=== PATIENT | female | born 2000 | race Caucasian/White ===

== ENCOUNTER 2022-07-23 08:47 | Day surgery (SDC) | payer OTHER ==
[~2022-07-23] VITALS: Ht 157.5 cm; Wt 56.2 kg
[~2022-07-23 08:47] MED LIST: FLUO20CA22 PO; HEPARIN SOD (PORCINE) 5000UNITS/ML 1ML VIAL/SYRINGE SQ ONE; TEST200I14 PO; ceFAZolin SOD 2 GM in IV 1 EA IV ONE
[2022-07-23 09:16] VITALS: BP 131/73
[2022-07-23] MEDS ORDERED: fentaNYL 100 MCG/2 ML INJECTION As Ordered ONE (09:29)
[2022-07-23] MEDS ORDERED: ONDANSETRON 4MG 2ML VIAL As Ordered ONE (09:30)
[2022-07-23] MEDS ORDERED: MIDAZOLAM INJ 2MG/2ML VIAL (J2250 PER 1MG) As Ordered ONE (09:30)
[2022-07-23] MEDS ORDERED: SUGAMMADEX SODIUM 500 MG/5 ML VIAL (BRIDION) As Ordered ONE (09:30)
[2022-07-23] MEDS ORDERED: propofoL 200 MG/20 ML VIAL As Ordered ONE (09:30)
[2022-07-23] MEDS ORDERED: ROCURONIUM BROMIDE 50MG/5ML VIAL As Ordered ONE (09:30)
[2022-07-23] MEDS ORDERED: LIDOCAINE 2% 100MG/5ML SDV (FOR ANES.) As Ordered ONE (09:30)
[2022-07-23] MEDS ORDERED: ACETAMINOPHEN 1000MG 100ML IV BAG As Ordered ONE (09:31)
[2022-07-23] MEDS ORDERED: LR 1,000 ML IV SCH (09:45)
[2022-07-23] MEDS ORDERED: HOME MED LIST COMPLETE! XX SCH (10:10)
[2022-07-23 10:26] LABS: BLOOD UREA NITROGEN 13 MG/DL (9-23); CALCIUM LEVEL 9.8 MG/DL (8.5-10.1); CARBON DIOXIDE LEVEL 28 MMOL/L (20-31); CHLORIDE LEVEL 102 MMOL/L (98-107); CREATININE FOR GFR 0.71 MG/DL (0.55-1.30); GLUCOSE, FASTING 84 MG/DL (60-100); POTASSIUM SERUM 4.3 MMOL/L (3.5-5.1); SODIUM LEVEL 138 MMOL/L (136-145)
[2022-07-23] MEDS ORDERED: GENTAMICIN SULF 80MG/2ML VIAL As Ordered ONE (12:13)
[2022-07-23] MEDS ORDERED: BUPIVACAINE HCL 0.25% 10ML VIAL As Ordered ONE (12:13)
[2022-07-23] MEDS ORDERED: BUPIVACAINE LIPOSOME/PF 1.3% 20ML VIAL (13.3MG/ML)(EXPAREL) As Ordered ONE (12:14)
== END 2022-07-23 09:17 | disposition home or self-care (01) ==
LOC: M SDC 08:47
PROVIDERS: ATTEND Plastic Surgery Surgery of the Hand
DX: Z53.29 Procedure and treatment not carried out because of patient's decision for other reasons (principal)
CPT/HCPCS: 36415; 80048; 81025; J0131; J1100; J2250; J2405; J3010

== ENCOUNTER → 2023-01-01 | Outpatient (CLI) | payer OTHER ==
[~2023-01-01] MED LIST changes: -HEPARIN SOD (PORCINE) 5000UNITS/ML 1ML VIAL/SYRINGE SQ ONE; -ceFAZolin SOD 2 GM in IV 1 EA IV ONE
[2023-01-01 15:14] LABS: BASO % 0.7 % (0.0-1.0); EOS # 0.1 10^3/uL (0.0-0.5); EOS % 1.4 % (0.0-3.0); HEMATOCRIT 44.5 % (36.0-47.0); HEMOGLOBIN 14.2 g/dl (12.0-15.5); LYMPH # 2.4 10^3/uL (1.5-5.0); LYMPH % 40.6 % (24.0-44.0); MEAN CORPUSCULAR HEMOGLOBIN 29.8 pg (27.0-33.0); MEAN CORPUSCULAR HGB CONC 31.9 g/dl (32.0-36.5); MEAN CORPUSCULAR VOLUME 93.3 fl (80.0-96.0); MONO # 0.5 10^3/uL (0.0-0.8); MONO % 8.1 % (2.0-8.0); NEUTROPHILS # 2.9 10^3/uL (1.5-8.5); PLATELET COUNT, AUTOMATED 303 10^3/uL (150-450); RED BLOOD COUNT 4.77 10^6/uL (4.00-5.40); WHITE BLOOD COUNT 5.8 10^3/uL (4.0-10.0)
[2023-01-01 15:39] LABS: BLOOD UREA NITROGEN 17 MG/DL (9-23); CARBON DIOXIDE LEVEL 30 MMOL/L (20-31); CHLORIDE LEVEL 103 MMOL/L (98-107); CREATININE FOR GFR 0.93 MG/DL (0.55-1.30); GLUCOSE, FASTING 76 MG/DL (60-100); POTASSIUM SERUM 4.2 MMOL/L (3.5-5.1); SODIUM LEVEL 139 MMOL/L (136-145)
== END ==
LOC: M LAB 13:49
PROVIDERS: ATTEND Physician Assistant
DX: N62 Hypertrophy of breast (principal)

== ENCOUNTER 2023-01-11 10:12 | Observation (INO) | payer OTHER ==
[~2023-01-11] VITALS: Ht 157.5 cm; Wt 58.0 kg
[~2023-01-11 10:12] MED LIST changes: +HEPARIN SOD (PORCINE) 5000UNITS/ML 1ML VIAL/SYRINGE SQ ONE; +LIDOCAINE 2% 100MG/5ML SDV (FOR ANES.) As Ordered ONE; +MIDAZOLAM INJ 2MG/2ML VIAL As Ordered ONE; +ONDANSETRON 4MG 2ML VIAL As Ordered ONE; +ROCURONIUM BROMIDE 50MG/5ML VIAL As Ordered ONE; +TEST200I14 IM; -TEST200I14 PO; +ceFAZolin SOD 2 GM in IV 1 EA IV ONE; +fentaNYL 250 MCG/5 ML INJECTION As Ordered ONE; +propofoL 200 MG/20 ML VIAL As Ordered ONE
[2023-01-11] MEDS ORDERED: LR 1,000 ML IV SCH ×2 (10:55→16:30)
[2023-01-11] MEDS ORDERED: HOME MED LIST COMPLETE! XX SCH (11:30)
[2023-01-11 11:45] LABS: HCG, SERUM QUALITATIVE NEGATIVE (NEGATIVE)
[2023-01-11] MEDS ORDERED: GENTAMICIN SULF 80MG/2ML VIAL As Ordered ONE (12:17)
[2023-01-11] MEDS ORDERED: SEVOFLURANE INHAL SOLN 250 ML BTL As Ordered ONE ×2 (12:19→13:59)
[2023-01-11] MEDS ORDERED: LACRILUBE (AKWA TEARS) OPHTH OINT 3.5GM As Ordered ONE (13:59)
[2023-01-11] MEDS ORDERED: HYDROmorphone HCL 2MG/ML 1ML VIAL As Ordered ONE (14:08)
[2023-01-11] MEDS ORDERED: ROCURONIUM BROMIDE 50MG/5ML VIAL As Ordered ONE (14:11)
[2023-01-11] MEDS ORDERED: ACETAMINOPHEN 1000MG 100ML IV BAG As Ordered ONE (14:17)
[2023-01-11] MEDS ORDERED: SUGAMMADEX SODIUM 500 MG/5 ML VIAL (BRIDION) As Ordered ONE (14:25)
[2023-01-11] MEDS ORDERED: ONDANSETRON 4MG 2ML VIAL IV PRN ×2 (16:30→16:55)
[2023-01-11] MEDS ORDERED: oxyCODONE 5MG TAB PO PRN (16:30)
[2023-01-11] MEDS ORDERED: fentaNYL 100 MCG/2 ML INJECTION IV PRN (16:30)
[2023-01-11 17:45] VITALS: BP 131/77; TEMP 97.9; O2SAT 95
[2023-01-11 18:15] VITALS: BP 128/72; TEMP 97.7; O2SAT 93
[2023-01-11] MEDS: traMADol 50 MG TAB PO PRN (18:57)
[2023-01-11] MEDS: LR 1,000 ML IV SCH (18:58)
[2023-01-11 19:58] VITALS: BP 132/78; TEMP 97.7; O2SAT 97
[2023-01-11] MEDS: ACETAMINOPHEN TAB 650MG DOSE (2X325MG) PO PRN (19:59)
[2023-01-11 21:07] VITALS: BP 135/78; TEMP 97.2; O2SAT 96
[2023-01-11] MEDS: ceFAZolin SOD 1 GM in D5W MINI-BAG PLUS 50 ML IV SCH (21:32)
[2023-01-11] MEDS: PERCOCET 5MG/325MG TAB PO PRN (21:59)
[2023-01-11 23:05] VITALS: BP 125/71; TEMP 97.9; O2SAT 96
[2023-01-12 01:45] VITALS: BP 128/71; TEMP 98.1; O2SAT 97
[2023-01-12] MEDS: ACETAMINOPHEN TAB 650MG DOSE (2X325MG) PO PRN (06:08)
[2023-01-12] MEDS: ceFAZolin SOD 1 GM in D5W MINI-BAG PLUS 50 ML IV SCH (06:09)
[2023-01-12] MEDS: LR 1,000 ML IV SCH (06:18)
[2023-01-12 06:42] VITALS: BP 128/71; TEMP 97.9; O2SAT 97
[2023-01-12 07:56] VITALS: O2SAT 96
[2023-01-12] MEDS: traMADol 50 MG TAB PO PRN (07:56)
[2023-01-12] MEDS: PERCOCET 5MG/325MG TAB PO PRN (11:47)
[2023-01-12] MEDS ORDERED: TRAM50TA2 PO (12:36)
[2023-01-12] MEDS ORDERED: FLUoxetine 20MG CAP PO SCH (21:00)
== END 2023-01-12 13:55 | disposition home or self-care (01) ==
LOC: M SDC 10:12 → M ED INP 16:52 → M MS5PR 17:30
PROVIDERS: ADMIT Plastic Surgery Surgery of the Hand; ATTEND Plastic Surgery Surgery of the Hand
DX: F64.9 Gender identity disorder, unspecified (principal); N62 Hypertrophy of breast; F41.9 Anxiety disorder, unspecified; F32.A Depression, unspecified; Z79.899 Other long term (current) drug therapy; Z79.890 Hormone replacement therapy
CPT/HCPCS: 19303; 19350; 36415; 84703; 87635; 88305; 96374; 96376; C9290; J0131; J0690; J1100; J1170; J1580; J2250; J2405; J3010; S0020